=== PATIENT | male | born 1985 | race African-American/Black ===

== ENCOUNTER 2016-09-26 02:06 | Emergency (ER) | payer BC, SELFPAY ==
[2016-09-26] MEDS ORDERED: AMOXicillin 250 MG CAP ONE (02:43)
[2016-09-26] MEDS ORDERED: Ibuprofen 200 MG TAB ONE (02:44)
== END 2016-09-26 02:51 | disposition home or self-care (01) ==
LOC: BURERS 02:06
DX: J02.9 Acute pharyngitis, unspecified (principal)
CPT/HCPCS: 87081; 87430; 99283